=== PATIENT | male | born 1950 | race Caucasian/White ===

== ENCOUNTER 2021-12-21 10:19 | Observation (INO) | payer OTHER, SELFPAY ==
[2021-12-21] VITALS (9 sets, daily range): BP systolic 131–148; BP diastolic 67–83; PULSE 86–96; RESP 14–22; TEMP 36.7–38.1; O2SAT 94–97; BMI 23.7; BMI 24.1
--- NOTE | 2021-12-21 10:52 | ED_ITS ---
ED Disposition Clinical Impression: Acute kidney injury, COVID-19 virus infection Disposition: Admitted as Observation Condition on Discharge: Fair - Critical Care Critical Care Time: No Attestation: On 12/21/21, the high probability of a clinically significant, sudden or life threatening deterioration of the following system(s) required my full and direct attention, intervention and personal management. The time I documented below is in addition to time spent performing reported procedures but includes the following listed in this critical care notation. Medical Decision Making - Feliberto Inquiry Pt receiving controlled substance: No Vital Signs: 12/21/21 10:30 12/21/21 10:34 12/21/21 11:49 Temperature 98.1 F Temperature Source Oral Pulse Rate 90 88 Pulse Rate [Left Radial] 96 H Respiratory Rate 14 18 Blood Pressure 131/69 141/74 H Blood Pressure [Right Arm] 142/67 H Blood Pressure Mean 92 Blood Pressure Mean [Right Arm] 92 Blood Pressure Source [Right Arm] Automatic Cuff Blood Pressure Position [Right Arm] Sitting 02 Sat by Pulse Oximetry 97 97 96 Oxygen Delivery Method Room Air 12/21/21 12:00 12/21/21 12:30 Temperature Temperature Source Pulse Rate 91 H 86 Pulse Rate [Left Radial] Respiratory Rate Blood Pressure 141/82 H 139/73 Blood Pressure [Right Arm] Blood Pressure Mean Blood Pressure Mean [Right Arm] Blood Pressure Source [Right Arm] Blood Pressure Position [Right Arm] 02 Sat by Pulse Oximetry 96 96 Oxygen Delivery Method - Lab Data Lab Results 12/21/21 10:52: SARS-CoV-2 (PCR) Detected A, Influenza A Untype (PCR) Not detected, Influenza Type B (PCR) Not detected 12/21/21 11:00: WBC 6.7, RBC 5.01, Hgb 14.9, Hct 45.8, MCV 91.5, MCH 29.7, MCHC 32.5, RDW 13.7, Plt Count 241, MPV 9.5, Neut % (Auto) 66.4, Lymph % (Auto) 22.9, [place] % (Auto) 8.4, Eos % (Auto) 0.7, Baso % (Auto) 1.5, Neut # (Auto) 4.4, Lymph # (Auto) 1.5, [place] # (Auto) 0.6, Eos # (Auto) 0.1, Baso # (Auto) 0.1, ESR 29 H 12/21/21 11:00: Sodium 136, Potassium 3.9, Chloride 105, Carbon Dioxide 21 L, Anion Gap 13.9, BUN 37 H, Creatinine 2.20 H, Estimated Creat Clear 35, Estimated GFR 30 L, Est GFR ( Amer) 36 L, Glucose 104 H, Calcium 9.2, Total Bilirubin 0.6, AST 26, ALT 29, Alkaline Phosphatase 74, C-Reactive Protein 73.9 H, Total Protein 7.8, Albumin 4.1, Globulin 3.7 H, Albumin/Globulin Ratio 1.1, Procalcitonin 0.240 12/21/21 11:00: Lactate 0.7 Result diagrams: 12/21/21 11:00 12/21/21 11:00 Orders (Tests/Meds): ED MEDICATIONS Discontinued Medications Generic Name Dose Route Start Last Admin Trade Name Freq PRN Reason Stop Dose Admin Sodium Chloride 1,000 ml 12/21/21 11:39 12/21/21 12:02 Sodium Chloride 0.9% 1000ml Bag IV 12/21/21 11:40 1,000 ml BOLUS ONE Administration ORDERS Category Date Time Status Urinalysis and Microscopic Stat Lab 12/21/21 10:51 Ordered Blood Culture Stat Micro 12/21/21 11:00 Received - Radiology Data #1 Image(s): Chest Image Reviewed: Yes I reviewed the patient's radiology image, Yes I have reviewed radiologist's interpretation PROCEDURE INFORMATION: Exam: XR Chest Exam date and time: 12/21/2021 10:51 AM Age: 71 years old Clinical indication: Fever; Additional info: Fever// pending covid test TECHNIQUE: Imaging protocol: XR of the chest. Views: 2 views. COMPARISON: No relevant prior studies available. FINDINGS: Lungs: There are chronic interstitial changes in both lungs. There is subtle increased opacity in the right upper lobe. No consolidation. Pleural spaces: Unremarkable. No pleural effusion. No pneumothorax. Heart/Mediastinum: Unremarkable. No cardiomegaly. Bones/joints: Unremarkable. IMPRESSION: Subtle increased opacity right upper lobe. Faint ground-glass infiltrate or airspace opacity could have this appearance. Clinical correlation for right upper lobe pneumonia is recommended. - Physician Consults Physician Consulted: Nik Time: 12:05 Reason -: Admission, Pt condition Comment/Response: Agrees to admit the patient to the hospital. We discussed the patient's clinical information, including history, exam, laboratory and radiology results and ED course. Per hospital procedure, I will write temporary bridge inpatient orders on the patient. Specific orders requested by the admitting physician: IV fluids, recheck chemistry profile in the morning. Vitamins and zinc for COVID. No steroids, or antivirals. Medical Decision Narrative: Chest x-ray findings likely minimal Covid viral pneumonia. General Adult HPI - General Chief complaint: Upper Respiratory Infection Stated complaint: fever, weakness, chills, dry mouth Time Seen by Provider: 12/21/21 10:45 Mode of Arrival: Ambulatory Limitations: No Limitations Description of Symptoms (Recalled from ER Triage Doc. by RN): c/o fever, nausea, non productive cough, chills and aches for about 8 days - History of Present Illness HPI narrative: States he has been sick for 8 days. He has had fevers, generalized weakness, poor appetite, dry mouth. Denies any current pain. Says that he had a little bit of a sore throat a couple of days ago but it resolved. No rhinorrhea or cough. No abdominal pain, vomiting, or diarrhea. No known exposure to any illnesses including COVID-19. He has had 1 dose of Moderna vaccine in March, never followed up for the second dose. - Related Data Home Medications Medication Instructions Recorded Confirmed Amlodipine Besylate [Amlodipine 10 mg PO DAILY 12/21/21 12/21/21 10mg Tab] Simvastatin 20 mg PO DAILY 12/21/21 12/21/21 Allergies Allergy/AdvReac Type Severity Reaction Status Date / Time No Known Allergies Allergy Verified 12/21/21 10:38 [facility] History - Hepatitis A Screen Drug use history?: No High risk sexual behaviors?: No History of sexually transmitted infection?: No Currently employed?: No Childcare worker?: No Do you have indoor plumbing?: Yes Do you have electricity?: Yes Attestation statement:: This patient has been screened for Hepatitis A risk factors. I have reviewed the patient's past medical history: Yes ROS Obtained: Yes All systems reviewed & no additional complaints - Constitutional Constitutional: Reports chills, Reports fever(s), Reports poor appetite, Reports malaise, Reports weakness - ENT Ears, Nose, Mouth, and Throat: Denies nasal discharge, Reports sore throat - Cardiovascular Cardiovascular: Denies chest pain - Respiratory Respiratory: Denies shortness of breath, Denies cough - Gastrointestinal Gastrointestingal: Denies: abdominal pain, diarrhea, vomiting - Genitourinary Male Genitourinary: Denies difficulty urinating, Denies flank pain Physical Exam - General General appearance: alert, in no apparent distress - Head Head exam: atraumatic, normocephalic - Eye Eye exam: Present: normal appearance, EOMI - ENT ENT exam: Present: normal oropharynx, mucous membranes moist, TM's normal bilaterally - Neck Neck exam: Present: normal inspection, trachea midline. Absent: meningismus, lymphadenopathy - Chest Chest inspection: Present: normal inspection, symmetric chest wall rise - Respiratory Respiratory exam: Present: normal lung sounds bilaterally. Absent: respiratory distress - Cardiovascular Cardiovascular exam: Present: regular rate, normal rhythm, normal heart sounds - Abdominal Exam Abdominal exam: Present: soft. Absent: distention, tenderness, guarding, rebound - Extremities Exam Extremities exam: Present: normal inspection - Neurological Exam Neurological exam: Present: alert, oriented X3, CN II-XII intact. Absent: motor sensory deficit - Psychiatric Psychiatric exam: Present: normal affect, normal mood - Skin Skin exam: Present: warm, dry. Absent: rash
[2021-12-21 11:16] LABS: Basophils # 0.1 K/mm3 (0-0.2); Basophils % 1.5 % (0.1-2.0); Eosinophils # 0.1 K/mm3 (0.0-0.4); Eosinophils % 0.7 % (0.1-12.0); Hematocrit 45.8 % (42.0-52.0); Hemoglobin 14.9 g/dL (14.1-18.0); Lymphocytes # 1.5 K/mm3 (0.7-4.5); Lymphocytes % 22.9 % (10-50); Mean Corpuscular HGB Conc 32.5 g/dL (31.8-35.4); Mean Corpuscular Hemoglobin 29.7 pg (27.0-31.2); Mean Corpuscular Volume 91.5 fl (80-94); Mean Platelet Volume 9.5 fl (7.4-10.4); Monocytes # 0.6 K/mm3 (0.1-1.0); Monocytes % 8.4 % (1.7-9.3); Neutrophils # 4.4 K/mm3 (1.8-7.8); Neutrophils % 66.4 % (37.0-80.0); Platelet Count 241 K/mm3 (142-424); Red Blood Count 5.01 M/mm3 (4.60-6.20); Red Cell Distribution Width 13.7 % (11.5-17.5); White Blood Count 6.7 K/mm3 (4.8-10.8)
[2021-12-21 11:19] LABS: Influenza A, PCR Not Detected (NotDetected); Influenza B, PCR Not Detected (NotDetected)
[2021-12-21 11:23] LABS: Alanine Aminotransferase 29 U/L (12-78); Albumin Level 4.1 g/dl (3.5-5.0); Albumin/Globulin Ratio 1.1 (1.1-1.8); Alkaline Phosphatase 74 U/L (38-126); Anion Gap 13.9 mEq/L (5-15); Aspartate Amino Transferase 26 U/L (17-59); Bilirubin,Total 0.6 mg/dl (0.2-1.3); Blood Urea Nitrogen 37 mg/dl (9-20); Calcium 9.2 mg/dl (8.4-10.2); Carbon Dioxide 21 mmol/L (22.0-30.0); Chloride 105 mmol/L (98-107); Creatinine Clearance Estimated 35 mL/min (50-200); Estimated Glomerular Filt Rate 30 ml/min (>60); GFR (African American) 36 ML/MIN (>60); Globulin 3.7 g/dL (1.3-3.2); Glucose 104 mg/dl (74-100); Potassium 3.9 mmoL/L (3.5-5.1); Sodium 136 mmol/L (136-145); Total Protein,Serum 7.8 g/dl (6.3-8.2)
[2021-12-21 11:24] LABS: Lactic Acid 0.7 mmol/L (0.7-2.1)
[2021-12-21 11:29] LABS: C-Reactive Protein 73.9 mg/L (0-4)
[2021-12-21 11:40] LABS: Erythrocyte Sedimentation Rate 29 mm/hr (0-20)
--- NOTE | 2021-12-21 11:44 | PC.NURSE ---
patient back from radiology and into bathroom at this time.
[2021-12-21 11:47] LABS: Coronavirus 19, PCR Detected (NotDetected)
--- NOTE | 2021-12-21 11:47 | PC.NURSE ---
pt back in bed after using bathroom. Ice water was given to the patient. Pt hooked back up to vital signs at this time.
--- NOTE | 2021-12-21 11:58 | PC.NURSE ---
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
[2021-12-21] MEDS: SODIUM CHLORIDE 0.9% 1000ML BAG 1000 ML IV (12:02)
--- NOTE | 2021-12-21 12:02 | PC.NURSE ---
Dr Zaragoza returned call.
--- NOTE | 2021-12-21 12:40 | PC.NURSE ---
Updated pt family about pt status and plan of care
[2021-12-21 13:23] LABS: Microscopic, Urine URINE MICROSCOPIC (MICROSCOPIC)
[2021-12-21 13:30] LABS: Appearance,Urine CLOUDY (Clear); Bilirubin,Urine Negative (Negative); Blood, Urine 3+ (Negative); Color,Urine YELLOW (Yellow); Glucose,Urine (UA) Negative (Negative); Ketones,Urine Negative (Negative); Leukocyte Esterase,Urine 2+ (Negative); Nitrate,Urine Negative (Negative); PH,Urine 6.5 (5.0-8.5); Protein,Urine TRACE (Negative); Urobilinogen,Urine 0.2 EU/dl (0.2)
--- NOTE | 2021-12-21 13:43 | HMH.PHAINT ---
MEDICATION RECONCILIATION COMPLETED ON PATIENT USING EXTERNAL FILL HISTORY FROM PHARMACY. -GUERO REEDER, MICHELLED
[2021-12-21 13:46] LABS: Bacteria,Urine 1+ /lpf; Squamous Epithelial Cell,Urine Occasional #/hpf (0-5)
--- NOTE | 2021-12-21 14:09 | PC.NURSE ---
pt asked to have a soda. Pepsi was given to patient.
--- NOTE | 2021-12-21 14:32 | PC.NURSE ---
report given to floor nurse
--- NOTE | 2021-12-21 14:48 | P.CONPHA_ITS ---
[facility] Pharmacy VTE Monitoring - Patient Demographics Admission date: 12/21/21 Report Date: 12/21/21 Time: 14:48 Allergies/Adverse Reactions: Patient Allergies No Known Allergies Allergy (Verified 12/21/21 10:38) Height: 1.83 m Weight: 79.379 kg Patient Problems: Current Active Problems Acute kidney injury (Acute) COVID-19 virus infection (Acute) - VTE Risk Labs: VTE Related Lab Results Hgb 14.9 g/dL (14.1-18.0) 12/21/21 11:00 Hct 45.8 % (42.0-52.0) 12/21/21 11:00 Plt Count 241 K/mm3 (142-424) 12/21/21 11:00 BUN 37 mg/dl (9-20) H 12/21/21 11:00 Creatinine 2.20 mg/dl (0.66-1.25) H 12/21/21 11:00 Estimated Creat Clear 35 mL/min (50-200) 12/21/21 11:00 - Prophylaxis VTE Prophylaxis Ordered?: Yes Types of VTE Prophylaxis: TEDS Knee High Location of Applied Device: Bilateral Lower Extremeties
[2021-12-21] MEDS: 0.9 % SODIUM CHLORIDE 1,000 ML 100 ML IV (15:09)
[2021-12-21] MEDS: FAMOTIDINE 20MG TABLET 20 MG PO (15:40)
[2021-12-21] MEDS: ERGOCALCIFEROL 50,000 UNITS (1.25MG) CAPSULE 50000 UNIT PO (15:40)
[2021-12-21] MEDS: ASCORBIC ACID 500MG TAB 500 MG PO ×3 (15:40→22:33)
[2021-12-21] MEDS: PRAVASTATIN 40MG TAB 40 MG PO (22:33)
[2021-12-21] MEDS: ACETAMINOPHEN 325MG TAB 650 MG PO (22:33)
[2021-12-22] VITALS: BP 135/66; PULSE 78; RESP 18; TEMP 37.2; O2SAT 90
[2021-12-22 04:00] VITALS: BP 134/74; PULSE 75; RESP 16; TEMP 36.9; O2SAT 94
[2021-12-22] MEDS: 0.9 % SODIUM CHLORIDE 1,000 ML 100 ML IV (04:32)
--- NOTE | 2021-12-22 05:17 | PC.NURSE ---
Patient had a slight increase in temperature, acetaminophen administered appropriately. During activity patient will de-stat into the 70s. RT was called to bedside. Vapotherm increased, patient recovered. Vapotherm now at 25/100. No other events thru the nite.
--- NOTE | 2021-12-22 05:22 | PC.NURSE ---
No events thru the nite, patient rested well. Ambulated to restroom and tolerated well.
[2021-12-22 07:00] LABS: Chloride 106 mmol/L (98-107); Potassium 3.7 mmoL/L (3.5-5.1); Sodium 139 mmol/L (136-145)
[2021-12-22 07:03] LABS: Anion Gap 16.7 mEq/L (5-15); Blood Urea Nitrogen 33 mg/dl (9-20); Carbon Dioxide 20 mmol/L (22.0-30.0); Creatinine Clearance Estimated 39 mL/min (50-200); Estimated Glomerular Filt Rate 33 ml/min (>60); GFR (African American) 40 ML/MIN (>60); Glucose 100 mg/dl (74-100)
[2021-12-22 08:00] VITALS: BP 131/73; PULSE 85; RESP 16; TEMP 37.3; O2SAT 96
--- NOTE | 2021-12-22 08:31 | US_ITS ---
FINAL REPORT TECHNIQUE: Ultrasound images of the kidneys and bladder were obtained. CLINICAL HISTORY: HBP, IDALIA FINDINGS: The right kidney measures 13.7 cm in length. It is normal in echogenicity. There is severe hydronephrosis. The left kidney measures 12.3 cm in length. It is normal in echogenicity. There is severe hydronephrosis. The urinary bladder is unremarkable. Multiple gallstones in the gallbladder are noted as an incidental finding. The spleen is within normal limits. IMPRESSION: Severe hydronephrosis bilaterally. Reviewed, Interpreted and Dictated by Will Pena III, MD Transcribed by Shari Yeung Authenticated by Will Pena III, MD on 12/22/2021 10:10:38 AM [facility]
--- NOTE | 2021-12-22 09:07 | P.HP_ITS ---
*Admission Date: 12/21/21 <NavidDanielle 12/22/21 09:13> *Chief complaint: Weakness and fever <Danielle Shoemaker 12/22/21 09:13> *History of present illness: Mr. Spring is a 71-year-old male patient with a history of hypertension, hyperlipidemia, and tobacco addiction who presented to the emergency room after suffering with persistent fever, body aches, and weakness. He states he has been sick for about 7 to 8 days and has not been eating and drinking as usual. He denies shortness of breath and cough. He states he initially had a sore throat but this has resolved. Thus he presented to the ER. Patient lives at home with his . His has no symptoms and has not been sick. He did receive 1 dose of [place] vaccine. In the emergency room temperature was 98.1. O2 sats were 96% on room air. He received a liter of IV fluids. COVID-19 was positive. Renal function with elevated creatinine and GFR of 30. Chest x-ray shows the following: IMPRESSION: Subtle increased opacity right upper lobe. Faint ground-glass infiltrate or airspace opacity could have this appearance. Clinical correlation for right upper lobe pneumonia is recommended. He was then admitted for further evaluation and treatment. This AM he may feel a little better. He still denies CP, SOB and cough. He continues with some body aches. <Danielle Shoemaker 12/22/21 10:03> [facility] History Medical History: Reports:: Hyperlipidemia, Hypertension Denies:: Cancer, Diabetes Mellitus Type 1, Diabetes Mellitus Type 2, Internal Pacemaker, MRSA <Danielle Shoemaker 12/22/21 09:13> *Have you ever received a pneumonia vaccine?: No <Danielle Shoemaker 12/22/21 09:13> *Have you received a flu vaccine this season?: No <Danielle Shoemaker 12/22/21 09:13> Laterality Cases: Right: Total Hip Replacement (2011) <Danielle Shoemaker 12/22/21 10:03> Other Surgeries: Yes: Colon Resection (for diverticular disease). No: Pacemaker <Danielle Shoemaker 12/22/21 10:03> Amputation: Yes (right 4th toe) <Danielle Shoemaker 12/22/21 10:03> Fractures: No <NavidDanielle 12/22/21 09:13> - *Social History Last grade of school completed: High school graduate <ShoemakerDanielle 12/22/21 09:13> Smoking Status: Current every day smoker <ShoemakerDanielle 12/22/21 10:03> # Packs/Day (cigarettes): 1 <ShoemakerDanielle 12/22/21 10:03> Alcohol Intake: never <ShoemakerDanielle 12/22/21 09:13> *Occupational Status:: retired (from the [employer] service) <ShoemakerDanielle 12/22/21 10:03> Housing: house <Shoemaker,Danielle 12/22/21 09:13> Household Members: spouse <Shoemaker,Danielle 12/22/21 09:13> *Travel in the last 8 weeks: None <NavidDanielle 12/22/21 09:13> Comment: agnieszka willingham <Danielle Shoemaker 12/22/21 10:03> Family Hx:: Cancer, Diabetes, Hypertension, Stroke <Danielle Shoemaker 12/22/21 10:03> Review of Systems - Constitutional Reports fatigue, Reports fever(s), Reports headache(s), Reports lack of energy <Danielle Shoemaker 12/22/21 10:03> - Eyes Denies change in vision <Danielle Shoemaker 12/22/21 10:03> - ENT Reports sore throat, Denies ear pain <Danielle Shoemaker 12/22/21 10:03> - *Cardiovascular Denies chest pain, Denies shortness of breath, Denies leg swelling <Danielle Shoemaker 12/22/21 10:03> - *Respiratory Denies chest congestion, Denies cough, Denies shortness of breath <Danielle Shoemaker 12/22/21 10:03> - *Gastrointestinal Denies abdominal pain, Denies constipation, Denies heartburn, Denies nausea, Denies vomiting <Danielle Shoemaker 12/22/21 10:03> Comments: poor appetite <Danielle Shoemaker 12/22/21 10:03> - *Genitourinary Denies difficulty urinating <Danielle Shoemaker 12/22/21 10:03> - *Musculoskeletal Reports body aches, Denies abnormal walking <Danielle Shoemaker 12/22/21 10:03> - *Neurologic Reports headache(s), Reports weakness, Denies unsteadiness, Denies dizziness <Danielle Shoemaker - 12/22/21 10:03> Meds Home Medications Medication Instructions Recorded Confirmed Type Amlodipine Besylate [Amlodipine 10 mg PO DAILY 12/21/21 12/21/21 History 10mg Tab] Simvastatin 20 mg PO HS 12/21/21 12/21/21 History <SybilMargarito Parth - 12/22/21 17:30> Allergies Allergy/AdvReac Type Severity Reaction Status Date / Time No Known Allergies Allergy Verified 12/21/21 10:38 <Margarito Devine - 12/22/21 17:30> Exam Vital signs and Labs for Last 24 Hours: Temp Pulse Resp BP Pulse Ox 99.0 F 82 16 145/81 H 95 12/22/21 16:00 12/22/21 16:00 12/22/21 16:00 12/22/21 16:00 12/22/21 16:00 Laboratory Results - last 24 hr 12/22/21 06:30: Sodium 139, Potassium 3.7, Chloride 106, Carbon Dioxide 20 L, Anion Gap 16.7 H, BUN 33 H, Creatinine 2.00 H, Estimated Creat Clear 39, Estimated GFR 33 L, Est GFR ( Amer) 40 L, Glucose 100, Calcium 9.0 <Margarito Devine - 12/22/21 17:30> Temp Pulse Resp BP Pulse Ox 99.1 F 85 16 131/73 96 12/22/21 08:00 12/22/21 08:00 12/22/21 08:00 12/22/21 08:00 12/22/21 08:00 Laboratory Results - last 24 hr 12/21/21 10:52: SARS-CoV-2 (PCR) Detected A, Influenza A Untype (PCR) Not detected, Influenza Type B (PCR) Not detected 12/21/21 11:00: WBC 6.7, RBC 5.01, Hgb 14.9, Hct 45.8, MCV 91.5, MCH 29.7, MCHC 32.5, RDW 13.7, Plt Count 241, MPV 9.5, Neut % (Auto) 66.4, Lymph % (Auto) 22.9, [place] % (Auto) 8.4, Eos % (Auto) 0.7, Baso % (Auto) 1.5, Neut # (Auto) 4.4, Lymph # (Auto) 1.5, [place] # (Auto) 0.6, Eos # (Auto) 0.1, Baso # (Auto) 0.1, ESR 29 H 12/21/21 11:00: Sodium 136, Potassium 3.9, Chloride 105, Carbon Dioxide 21 L, Anion Gap 13.9, BUN 37 H, Creatinine 2.20 H, Estimated Creat Clear 35, Estimated GFR 30 L, Est GFR ( Amer) 36 L, Glucose 104 H, Calcium 9.2, Total Bilirubin 0.6, AST 26, ALT 29, Alkaline Phosphatase 74, C-Reactive Protein 73.9 H, Total Protein 7.8, Albumin 4.1, Globulin 3.7 H, Albumin/Globulin Ratio 1.1, Procalcitonin 0.240 12/21/21 11:00: Lactate 0.7 12/21/21 13:16: Urine Color Yellow, Urine Appearance Cloudy, Urine pH 6.5, Ur Specific [place] 1.010, Urine Protein Trace, Urine Glucose (UA) Negative, Urine Ketones Negative, Urine Blood 3+, Urine Nitrate Negative, Urine Bilirubin Negative, Urine Urobilinogen 0.2, Ur Leukocyte Esterase 2+ A, Urine RBC 10-20, Urine WBC 5-10, Ur Squamous Epith Cells Occasional, Urine Bacteria 1+ 12/22/21 06:30: Sodium 139, Potassium 3.7, Chloride 106, Carbon Dioxide 20 L, Anion Gap 16.7 H, BUN 33 H, Creatinine 2.00 H, Estimated Creat Clear 39, Estimated GFR 33 L, Est GFR ( Amer) 40 L, Glucose 100, Calcium 9.0 <Danielle Shoemaker - 12/22/21 09:13> I & O for Last 24 hours: Intake & Output 12/20/21 12/21/21 12/22/21 12/23/21 11:59 11:59 11:59 11:59 Intake Total 300 / 300 240 / 240 Balance 300 / 300 240 / 240 Weight 175 lb 178 lb 2.136 oz <Sybil,Margarito Parth - 12/22/21 17:30> Intake & Output 12/19/21 12/20/21 12/21/21 12/22/21 11:59 11:59 11:59 11:59 Intake Total 240 / 240 Balance 240 / 240 Weight 175 lb 178 lb 4 oz <Kathleen Shoemakerhy 12/22/21 09:13> Microbiology Reports for the Last 24 Hours: Microbiology 12/21/21 13:16 Urine,Clean Catch Urine Culture - Preliminary <Margarito Devine - 12/22/21 17:30> Microbiology 12/21/21 13:16 Urine,Clean Catch Urine Culture - Preliminary <ShoemakerDanielle 12/22/21 09:13> - Constitutional no acute distress <Danielle Shoemaker 12/22/21 10:03> Comments: sitting u in the bed and appears comfortable <Danielle Shoemaker 12/22/21 10:03> - *Routine HEENT Exam Head: Present: normocephalic, atraumatic <Danielle Shoemaker 12/22/21 10:03> Eye: Present: PERRL. Absent: conjunctival icterus, scleral injection <Danielle Shoemaker 12/22/21 10:03> ENT: Present: mucous membranes moist, oropharynx clear <Danielle Shoemaker 12/22/21 10:03> - *Routine Neck Exam Present: supple. Absent: carotid bruit, lymphadenopathy, thyromegaly <Danielle Shoemaker 12/22/21 10:03> - *Routine Respiratory Exam Present: CTA bilaterally (A&P) <Danielle Shoemaker 12/22/21 10:03> Comments: some cough during exam <Danielle Shoemaker 12/22/21 10:03> - *Routine Cardiovascular Exam Present: RRR <Danielle Shoemaker 12/22/21 10:03> - *Routine Abdominal Exam Present: soft, normoactive bowel sounds. Absent: tenderness <Danielle Shoemaker 12/22/21 10:03> - *Routine Rectal Exam Rectal:: deferred <Danielle Shoemaker 12/22/21 10:03> - *Routine Genitalia Exam Genitalia:: deferred <Danielle Shoemaker - 12/22/21 10:03> - *Routine Extremities Exam Absent: edema, calf tenderness <Danielle Shoemaker 12/22/21 10:03> - *Routine Neurological Exam Present: alert, oriented X3 <Danielle Shoemaker 12/22/21 10:03> Assessment and Plan (1) Acute kidney injury Status: Acute Category: Medical Code(s): N17.9 - Acute kidney failure, unspecified (2) COVID-19 virus infection Status: Acute Category: Medical Code(s): U07.1 - COVID-19 (3) HTN (hypertension) Status: Chronic Category: Medical Code(s): I10 - Essential (primary) hypertension (4) Tobacco abuse disorder Status: Chronic Category: Medical Code(s): Z72.0 - Tobacco use <Margarito Devine 12/22/21 17:30> (1) HTN (hypertension) Status: Chronic Category: Medical Code(s): I10 - Essential (primary) hypertension (2) Tobacco abuse disorder Status: Chronic Category: Medical Code(s): Z72.0 - Tobacco use (3) Acute kidney injury Status: Acute Category: Medical Code(s): N17.9 - Acute kidney failure, unspecified (4) COVID-19 virus infection Status: Acute Category: Medical Code(s): U07.1 - COVID-19 <Danielle Shoemaker 12/22/21 09:44> - Assessment and plan all Dx Assessment and Plan for all problems:: Patient seen and examined Concur with above. IVF increased to 125cc/h. Check renal US to r/o intrinsic kidney disease. <Sybil,Margarito Parth - 12/22/21 17:30> Kidney US; continue with IVF at 125/h for renal insufficiency due to probable decrease in oral fluid intake with the 7-8 days of COVID illness; has been started on Vitamins and Pepcid as per COVID protocol. O2 sats remain good on room air. Will continue to monitor <Danielle Shoemaker 12/22/21 10:03>
[2021-12-22 10:05] VITALS: BMI 24.1
[2021-12-22] MEDS: ZINC SULFATE 220MG CAPSULE 220 MG PO (10:10)
[2021-12-22] MEDS: AMLODIPINE 10MG TABLET 10 MG PO (10:10)
[2021-12-22] MEDS: ASCORBIC ACID 500MG TAB 500 MG PO ×4 (10:10→21:56)
[2021-12-22] MEDS: FAMOTIDINE 20MG TABLET 20 MG PO (10:10)
[2021-12-22 12:22] VITALS: BP 137/70; PULSE 94; RESP 18; TEMP 36.6; O2SAT 93
[2021-12-22 16:00] VITALS: BP 145/81; PULSE 82; RESP 16; TEMP 37.2; O2SAT 95
[2021-12-22] MEDS: 0.9 % SODIUM CHLORIDE 1,000 ML 125 ML IV (16:39)
[2021-12-22 19:47] VITALS: BP 153/76; PULSE 89; RESP 20; TEMP 37.1; O2SAT 93
[2021-12-22] MEDS: PRAVASTATIN 40MG TAB 40 MG PO (21:56)
[2021-12-23] VITALS: BP 164/71; PULSE 90; RESP 20; TEMP 37.8; O2SAT 93
[2021-12-23] MEDS: ACETAMINOPHEN 325MG TAB 650 MG PO (00:07)
[2021-12-23 04:00] VITALS: BP 162/75; PULSE 82; RESP 18; TEMP 36.7; O2SAT 94
[2021-12-23 05:00] VITALS: BMI 24.1
[2021-12-23 06:30] LABS: Chloride 113 mmol/L (98-107); Potassium 3.6 mmoL/L (3.5-5.1); Sodium 139 mmol/L (136-145)
[2021-12-23 06:33] LABS: Anion Gap 13.6 mEq/L (5-15); Blood Urea Nitrogen 24 mg/dl (9-20); Carbon Dioxide 16 mmol/L (22.0-30.0); Creatinine Clearance Estimated 49 mL/min (50-200); Estimated Glomerular Filt Rate 43 ml/min (>60); GFR (African American) 52 ML/MIN (>60)
[2021-12-23 06:34] LABS: Calcium 8.6 mg/dl (8.4-10.2); Glucose 92 mg/dl (74-100)
[2021-12-23 08:00] VITALS: BP 130/76; PULSE 80; RESP 18; TEMP 36.8; O2SAT 94
[2021-12-23] MEDS: ZINC SULFATE 220MG CAPSULE 220 MG PO (09:26)
[2021-12-23] MEDS: ASCORBIC ACID 500MG TAB 500 MG PO ×2 (09:26→12:57)
[2021-12-23] MEDS: AMLODIPINE 10MG TABLET 10 MG PO (09:26)
[2021-12-23] MEDS: FAMOTIDINE 20MG TABLET 20 MG PO (09:26)
--- NOTE | 2021-12-23 09:45 | HMH.ACPN2 ---
<Danielle Shoemaker - Last Filed: 12/23/21 09:45> Internal Medicine - PN: Subj *Date: 12/23/21 *Time: 09:45 Interval history: Patient is hungry and would like to know where breakfast is. He was made n.p.o. for urology visit this a.m. He denies chest pain and shortness of breath. He does have an occasional cough. He would really like to go home. Slept at intervals. 12/22/2021 renal ultrasounds with results as follows: IMPRESSION: Severe hydronephrosis bilaterally. Exam Vital signs and Labs for Last 24 Hours: Temp Pulse Resp BP Pulse Ox 98.2 F 80 18 130/76 94 L 12/23/21 08:00 12/23/21 08:00 12/23/21 08:00 12/23/21 08:00 12/23/21 08:00 Laboratory Results - last 24 hr 12/23/21 05:27: Sodium 139, Potassium 3.6, Chloride 113 H, Carbon Dioxide 16 L, Anion Gap 13.6, BUN 24 H D, Creatinine 1.60 H, Estimated Creat Clear 49, Estimated GFR 43 L, Est GFR ( Amer) 52 L D, Glucose 92, Calcium 8.6 I & O for Last 24 hours: Intake & Output 12/20/21 12/21/21 12/22/21 12/23/21 11:59 11:59 11:59 11:59 Intake Total 300 / 300 300 / 300 Balance 300 / 300 300 / 300 Weight 175 lb 178 lb 2.136 oz 178 lb 8 oz Microbiology Reports for the Last 24 Hours: Microbiology 12/21/21 13:16 Urine,Clean Catch Urine Culture - Preliminary - Constitutional no acute distress - *Routine Respiratory Exam Present: rhonchi (Bilateral scattered) - *Routine Cardiovascular Exam Present: RRR - *Routine Abdominal Exam Present: soft, normoactive bowel sounds. Absent: tenderness - *Routine Extremities Exam Absent: edema - *Routine Neurological Exam Present: alert, oriented X3 Assessment and Plan (1) Acute kidney injury Status: Acute Category: Medical Code(s): N17.9 - Acute kidney failure, unspecified (2) COVID-19 virus infection Status: Acute Category: Medical Code(s): U07.1 - COVID-19 (3) HTN (hypertension) Status: Chronic Category: Medical Code(s): I10 - Essential (primary) hypertension (4) Tobacco abuse disorder Status: Chronic Category: Medical Code(s): Z72.0 - Tobacco use (5) Hydronephrosis of left kidney Status: Acute Category: Medical Code(s): N13.30 - Unspecified hydronephrosis (6) Hydronephrosis of right kidney Status: Acute Category: Medical Code(s): N13.30 - Unspecified hydronephrosis - Assessment and plan all Dx Assessment and Plan for all problems:: Discussed smoking cessation. Patient is not ready to stop. Dr. Silva to see patient today due to abnormal renal ultrasound. <Margarito Devine - Last Filed: 12/23/21 17:39> Internal Medicine - PN: Subj *Date: 12/23/21 *Time: 17:36 Exam Vital signs and Labs for Last 24 Hours: Temp Pulse Resp BP Pulse Ox 97.6 F 88 16 145/83 H 95 12/23/21 12:00 12/23/21 12:00 12/23/21 12:00 12/23/21 12:00 12/23/21 12:00 Laboratory Results - last 24 hr 12/23/21 05:27: Sodium 139, Potassium 3.6, Chloride 113 H, Carbon Dioxide 16 L, Anion Gap 13.6, BUN 24 H D, Creatinine 1.60 H, Estimated Creat Clear 49, Estimated GFR 43 L, Est GFR ( Amer) 52 L D, Glucose 92, Calcium 8.6 I & O for Last 24 hours: Intake & Output 12/21/21 12/22/21 12/23/21 12/24/21 11:59 11:59 11:59 11:59 Intake Total 300 / 300 300 / 300 Balance 300 / 300 300 / 300 Weight 175 lb 178 lb 2.136 oz 178 lb 8 oz Microbiology Reports for the Last 24 Hours: Microbiology 12/21/21 11:00 Blood Blood Culture - Preliminary NO GROWTH AFTER 48 HOURS 12/21/21 11:00 Blood Blood Culture - Preliminary NO GROWTH AFTER 48 HOURS 12/21/21 13:16 Urine,Clean Catch Urine Culture - Preliminary Assessment and Plan (1) Acute kidney injury Status: Acute Category: Medical Code(s): N17.9 - Acute kidney failure, unspecified (2) COVID-19 virus infection Status: Acute Category: Medical Code(s): U07.1 - COVID-19 (3) HTN (hypertension) Status: Chronic Category: Medical Code(s): I10 - Essential (primary) hypertension (4) Tobacco abuse disorder Status: Chronic Category: Medical Code(s): Z72.0 - Tobacco use (5) Hydronephrosis of left kidney Status: Acute Category: Medical Code(s): N13.30 - Unspecified hydronephrosis (6) Hydronephrosis of right kidney Status: Acute Category: Medical Code(s): N13.30 - Unspecified hydronephrosis - Assessment and plan all Dx Assessment and Plan for all problems:: Patient seen and examined. He states he is feeling better and wants to go home. Appetite still not good but taking liquieds well. Renal function continues to improve with hydration however his renal US showed bilateral hydronephrosis. He denies urinary hesitancy or frequency. Will consult with urology today. Possibly discharge later today after evaluated by Dr. Silva.
--- NOTE | 2021-12-23 10:14 | CT_ITS ---
FINAL REPORT CLINICAL HISTORY: hydronephrosis FINDINGS: Technique: Axial images through the abdomen and pelvis were performed by computed tomography. This study was performed with techniques to keep radiation doses as low as reasonably achievable (ALARA). Individualized dose reduction techniques using automated exposure control or adjustment of mA and/or kV according to the patient's size were employed. Abdomen: There is mild scarring in the right lung base. There are groundglass opacities in the left lung base, may represent pneumonia or edema. The liver is normal in size and attenuation. Gallstones are noted. The spleen is unremarkable. The pancreas is normal. The adrenals are normal. The aorta is normal in caliber. There is severe bilateral hydronephrosis and hydroureter. There is bilateral retroperitoneal stranding/edema. Pelvis: The appendix is not identified. The urinary bladder is markedly distended to above the umbilicus. There are postoperative changes of the ascending colon. There is descending and sigmoid diverticulosis. Bilateral inguinal hernias containing fat are identified. Postoperative changes are seen of the right hip. There is no free fluid or adenopathy. IMPRESSION: Groundglass opacities, may represent pneumonia or edema. Cholelithiasis. Bilateral hydronephrosis and hydroureter which may be due to reflux. Reviewed, Interpreted and Dictated by Will Pena III, MD Transcribed by Danielle Mcmahan Authenticated by Will Pena III, MD on 12/23/2021 01:50:14 PM [facility]
--- NOTE | 2021-12-23 10:18 | HMH.CONS ---
*Admission Date: 12/21/21 *Reason for consult:: Bilateral hydronephrosis *History of present illness: Patient is a 71-year-old white male referred for bilateral hydronephrosis. He was admitted from the emergency room 2 days ago with Covid and possible pneumonia. Patient's creatinine was noted to be elevated to 2.2. His white count was and renal ultrasound was performed showing bilateral hydronephrosis. The bladder was unremarkable gallstones were noted. Patient was interviewed in the states of variable stream but denies any significant urinary frequency, urgency. He states he gets up at night 1-2 times. His creatinine has improved to 1.6 as of today.` No other imaging is noted in the database. Patient denies a history of kidney stones or urologic intervention. [facility] History Medical History: Reports:: Hyperlipidemia, Hypertension Denies:: Cancer, Diabetes Mellitus Type 1, Diabetes Mellitus Type 2, Internal Pacemaker, MRSA *Have you ever received a pneumonia vaccine?: No *Have you received a flu vaccine this season?: No Laterality Cases: Right: Total Hip Replacement (2011) Other Surgeries: Yes: Colon Resection (for diverticular disease). 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4 mg PO HS #90 cap 12/23/21 Rx capsule] Allergies Allergy/AdvReac Type Severity Reaction Status Date / Time No Known Allergies Allergy Verified 12/21/21 10:38 Exam Vital signs and Labs for Last 24 Hours: Temp Pulse Resp BP Pulse Ox 98.2 F 80 18 130/76 94 L 12/23/21 08:00 12/23/21 08:00 12/23/21 08:00 12/23/21 08:00 12/23/21 08:00 Laboratory Results - last 24 hr 12/23/21 05:27: Sodium 139, Potassium 3.6, Chloride 113 H, Carbon Dioxide 16 L, Anion Gap 13.6, BUN 24 H D, Creatinine 1.60 H, Estimated Creat Clear 49, Estimated GFR 43 L, Est GFR ( Amer) 52 L D, Glucose 92, Calcium 8.6 I & O for Last 24 hours: Intake & Output 12/20/21 12/21/21 12/22/21 12/23/21 23:59 23:59 23:59 23:59 Intake Total 240 / 240 360 / 360 Balance 240 / 240 360 / 360 Weight 80.853 kg 80.8 kg 80.966 kg Microbiology Reports for the Last 24 Hours: Microbiology 12/21/21 13:16 Urine,Clean Catch Urine Culture - Preliminary - Constitutional no acute distress - *Routine HEENT Exam Head: Present: normocephalic Eye: Present: EOMI, PERRL ENT: Present: mucous membranes moist - *Routine Neck Exam Present: supple. Absent: lymphadenopathy - *Routine Respiratory Exam Absent: accessory muscle use - *Routine Cardiovascular Exam Absent: JVD - *Routine Abdominal Exam Present: soft. Absent: tenderness - *Routine Extremities Exam Absent: cyanosis, clubbing, edema - *Routine Skin Exam Present: warm. Absent: rash - *Routine Neurological Exam Present: alert, oriented X3 Internal Medicine - CN: Reslt - Labs CBC & Chem 7: 12/21/21 11:00 12/23/21 05:27 Labs: BMP 12/23/21 05:27 Sodium 139 Potassium 3.6 Chloride 113 H Carbon Dioxide 16 L BUN 24 H D Creatinine 1.60 H Glucose 92 Calcium 8.6 Assessment and Plan (1) Acute kidney injury Status: Acute Category: Medical Code(s): N17.9 - Acute kidney failure, unspecified (2) COVID-19 virus infection Status: Acute Category: Medical Code(s): U07.1 - COVID-19 (3) HTN (hypertension) Status: Chronic Category: Medical Code(s): I10 - Essential (primary) hypertension (4) Tobacco abuse disorder Status: Chronic Category: Medical Code(s): Z72.0 - Tobacco use (5) Hydronephrosis of left kidney Status: Acute Category: Medical Code(s): N13.30 - Unspecified hydronephrosis (6) Hydronephrosis of right kidney Status: Acute Category: Medical Code(s): N13.30 - Unspecified hydronephrosis (7) Hydronephrosis Status: Acute Category: Medical Code(s): N13.30 - Unspecified hydronephrosis Patient with bilateral hydronephrosis. He does not have significant lower urinary tract symptoms. CT scan is recommended for further evaluation. A prescription for tamsulosin was given and he is ready for discharge later today. I will have him return to the office with me next week in follow-up.
--- NOTE | 2021-12-23 10:29 | DIET.NUTRFU ---
RD reviewed meal intake, indicating fair to good intake. Plans to get renal ultrasound today.
[2021-12-23 12:00] VITALS: BP 145/83; PULSE 88; RESP 16; TEMP 36.4; O2SAT 95
--- NOTE | 2021-12-23 13:30 | PC.NURSE ---
Patient notified of discharge order. Patient stated it will take his spouse at least and hour and a half to drive here.
--- NOTE | 2021-12-28 22:53 | P.DS_ITS ---
General - General Admission date:: 12/21/21 <Margarito Devine - 02/04/22 22:03> 12/21/21 <MarlonNellie - 12/28/21 22:58> Discharge date: 12/23/21 <MarlonNellie - 12/28/21 22:58> HPI HPI: Mr. Spring is a 71-year-old male patient with a history of hypertension, hyperlipidemia, and tobacco addiction who presented to the emergency room after suffering with persistent fever, body aches, and weakness. He states he has been sick for about 7 to 8 days and has not been eating and drinking as usual. He denies shortness of breath and cough. He states he initially had a sore t hroat but this has resolved, thus he presented to the ER. Patient lives at home with his . His has no symptoms and has not been sick. He did receive 1 dose of Moderna vaccine. In the emergency room temperature was 98.1. O2 sats were 96% on room air. He received a liter of IV fluids. COVID-19 was positive. Renal function with elevated creatinine and GFR of 30. Chest x-ray shows the following: IMPRESSION: Subtle increased opacity right upper lobe. Faint ground-glass infiltrate or airspace opacity could have this appearance. Clinical correlation for right upper lobe pneumonia is recommended. He was then admitted for further evaluation and treatment. This AM he may feel a little better. He still denies CP, SOB and cough. He continues with some body aches. <MarlonNellie - 12/28/21 22:58> Hospital Course Hospital Course: He was admitted and started on Covid protocol. He was continued on IV fluids for renal insufficiency due to probable decrease in oral fluid intake. His oxygen saturations remained normal on room air. A kidney ultrasound was ordered. His renal ultrasound showed severe hydronephrosis bilaterally. Urology was therefore consulted. He was able to begin taking liquids and his renal function improved with hydration. He was seen by Dr. Silva who recommended a CT of the abdomen and pelvis. He also prescribed tamsulosin. His abdominal pelvic CT showed groundglass opacities representing pneumonia or edema, cholelithiasis, and bilateral hydronephrosis and hydroureter which may be due to reflux. Dr. Silva felt he could follow-up in his office on an outpatient basis. The patient was stable to be discharged. <Nellie Mason - 12/28/21 22:58> Objective Vital signs: Temp Pulse Resp BP Pulse Ox 97.6 F 88 16 145/83 H 95 12/23/21 12:00 12/23/21 12:00 12/23/21 12:00 12/23/21 12:00 12/23/21 12:00 <Margarito Devine - 02/04/22 22:03> Temp Pulse Resp BP Pulse Ox 97.6 F 88 16 145/83 H 95 12/23/21 12:00 12/23/21 12:00 12/23/21 12:00 12/23/21 12:00 12/23/21 12:00 <Nellie Mason 12/28/21 22:58> Narrative: - Constitutional no acute distress - *Routine Respiratory Exam Present: rhonchi (Bilateral scattered) - *Routine Cardiovascular Exam Present: RRR - *Routine Abdominal Exam Present: soft, normoactive bowel sounds. Absent: tenderness - *Routine Extremities Exam Absent: edema - *Routine Neurological Exam Present: alert, oriented X3 <Nellie Mason 12/28/21 22:58> DS: Diagnosis - Discharge Diagnosis (1) Acute kidney injury Status: Acute (2) COVID-19 virus infection Status: Acute (3) HTN (hypertension) Status: Chronic (4) Tobacco abuse disorder Status: Chronic (5) Hydronephrosis of left kidney Status: Acute (6) Hydronephrosis of right kidney Status: Acute <Nellie Mason 12/28/21 22:53> (1) Acute kidney injury Status: Acute (2) COVID-19 virus infection Status: Acute (3) HTN (hypertension) Status: Chronic (4) Tobacco abuse disorder Status: Chronic (5) Hydronephrosis of left kidney Status: Acute (6) Hydronephrosis of right kidney Status: Acute <Margarito Devine - 02/04/22 22:03> Discharge Plan - Patient Discharge Instructions ACTIVITY: Limited activity <Nellie Mason 12/28/21 22:58> DIET: continue same diet <Nellie Mason 12/28/21 22:58> Patient Instructions: Acute Kidney Injury, DI for COVID-19 (Suspected or Confirmed ), Nutrition and Hydration: [employer] in the Fight Against COVID-19 <Margarito Devine - 02/04/22 22:03> Forms: <Margarito Devine - 02/04/22 22:03> - Follow up Plan Follow up with: Margarito Devine MD [Primary Care Provider] - 01/06/22 1:30 pm Darrell Silva MD [Staff Physician] - 12/30/21 10:30 am <Margarito Devine - 02/04/22 22:03> Disposition: Home, Self-Care <Margarito Devine - 02/04/22 22:03> Condition at discharge:: Improved <Nellie Mason - 12/28/21 22:58> Home Medications: Home Medications Medication Instructions Recorded Confirmed Type Amlodipine Besylate [Amlodipine 10 mg PO DAILY 12/21/21 01/16/22 History 10mg Tab] Simvastatin 20 mg PO HS 12/21/21 01/16/22 History Tamsulosin HCl [Flomax 0.4mg 0.4 mg PO HS 01/16/22 01/16/22 History capsule] <Margarito Devine - 02/04/22 22:03> Prescriptions/Medication Reconciliation: Continued Simvastatin 20 mg PO HS Amlodipine Besylate [Amlodipine 10mg Tab] 10 mg PO DAILY No Action Tamsulosin HCl [Flomax 0.4mg capsule] 0.4 mg PO HS <Margarito Devine - 02/04/22 22:03> - Problem Reconciliation Problems Reviewed?: Yes <Margarito Devine - 02/04/22 22:03> Yes <Nellie Mason - 12/28/21 22:58> - Additional Information Additional Information: Concur with above assessment and plan for discharge. <Margarito Devine - 02/04/22 22:03>
== END 2021-12-23 14:45 | disposition home or self-care (01) ==
LOC: ER 12:06 → 2ND 12:12
PROVIDERS: Admitting Provider Family Medicine; Emergency Provider Emergency Medicine; PCP Family Medicine; Visit Provider Family Medicine
DX: U07.1 COVID-19 (principal); N17.9 Acute kidney failure, unspecified; N13.30 Unspecified hydronephrosis; I10 Essential (primary) hypertension; E78.5 Hyperlipidemia, unspecified; F17.210 Nicotine dependence, cigarettes, uncomplicated
CPT/HCPCS: 71046; 74176; 76770; 80048; 80053; 81001; 83605; 84145; 85025; 85651; 86140; 87040; 87086; 87088; 87186; 96365; 99284; C9803; G0378; U0003; U0005

== ENCOUNTER → 2022-01-14 08:37 | Outpatient (CLI) | payer BC, OTHER, SELFPAY | PROVIDERS: PCP Family Medicine; Visit Provider Urology | DX: Z01.812 Encounter for preprocedural laboratory examination (principal); Z11.52 Encounter for screening for COVID-19; N13.30 Unspecified hydronephrosis | CPT/HCPCS: C9803; U0003; U0005 ==

== ENCOUNTER 2022-01-16 10:56 | Day surgery (SDC) | payer BC, SELFPAY ==
[2022-01-14 10:22] VITALS: BMI 22.2
[2022-01-16 11:11] VITALS: BP 141/66; PULSE 79; RESP 18; TEMP 36.6; O2SAT 97
[2022-01-16 12:02] VITALS: BP 127/73; PULSE 82; RESP 16; TEMP 36.4; O2SAT 96
--- NOTE | 2022-01-16 13:23 | HMH.OPNOTE ---
Date of procedure: 01/16/22 Pre-op Diagnosis:: Incomplete bladder emptying Post-op Diagnosis:: Neurogenic bladder Procedure performed:: Cystoscopy Surgeon:: Darrell Silva MD Anesthesia: local Estimated blood loss (mL): 0 Clinical Note:: Patient is a 71-year-old white male recently noted to have bilateral hydroureteronephrosis and a distended bladder. His prostate does not appear to be that large on the CT scan. He is known to have at least a 2 L residual. His creatinine is around 2. Operative findings:: Patient's prostate did not appear to be an obstructing prostate. His bladder was of high capacity and was floppy in nature with a lot of rogation. No cellules or diverticula formation was noted. There was a lot of sediment in the bladder base obscuring the ureteral orifices. There is no evidence of a median lobe. Operative note:: On exam today his bladder is distended. He was taken to the cystoscopy suite after informed consent was obtained. He was prepped and draped in the standard surgical fashion. Local anesthetic was placed into the urethra and clamped for 5 minutes. After 5 minutes the clamp removed and due to the bladder distention a 16 Bangl[place]hi Hunter catheter was passed in the bladder emptied. There was 2.7 L noted in the bladder. Catheter then removed and the flexible cystoscope introduced into the urethra. The prostatic urethra was rather short and did not appear to be obstructing. The bladder was entered and examined in a systematic fashion. The bladder was high capacity and appeared a bit floppy when it was not distended. There was a lot of sediment at the bladder base. Due to the sediment I can never visualize the ureteral orifices. Bladder was filled with 1 L and there was not a significant amount of cellules or diverticula or trabeculation. The scope was retroflexed in the median lobe was not visualized. The scope then pulled back to the prostatic urethra and it was examined again. Again it did not appear to be an obstructing prostate. The scope removed and patient tolerated procedure well. We discussed the findings today and his exam is consistent with a neurogenic bladder and he was taught how to catheterize himself. He was given a 14 Bangladeshi red rubber catheter and we talked how to place the catheter and and he was able to do this and we drained off the 1 L of fluid that was placed during the cystoscopy. The catheter then removed. We discussed the patient needs to do this 3-4 times a day to keep his bladder relatively at low pressure. We discussed if he is not able to do this this will lead to continuing and worsening renal failure. He was given sample packs of the self catheter today and we will order One Touch catheters for him to use in the future. Condition: stable Disposition: same day Specimens:: None Complications:: None
== END 2022-01-16 12:14 | disposition home or self-care (01) ==
LOC: OUTP 10:59
PROVIDERS: PCP Family Medicine; Visit Provider Urology
PROC: (CPT 52000; principal; 2022-01-16 12:00)
DX: N31.9 Neuromuscular dysfunction of bladder, unspecified (principal); N17.9 Acute kidney failure, unspecified; I10 Essential (primary) hypertension; E78.5 Hyperlipidemia, unspecified; Z72.0 Tobacco use; Z79.899 Other long term (current) drug therapy; Z83.3 Family history of diabetes mellitus; Z82.3 Family history of stroke; Z82.49 Family history of ischemic heart disease and other diseases of the circulatory system; Z80.9 Family history of malignant neoplasm, unspecified
CPT/HCPCS: 52000

== ENCOUNTER → 2022-09-28 11:05 | Outpatient (CLI) | payer BC, SELFPAY ==
[2022-09-28 18:42] LABS: Alanine Aminotransferase 14 U/L (12-78); Albumin Level 4.5 g/dl (3.5-5.0); Albumin/Globulin Ratio 1.6 (1.1-1.8); Alkaline Phosphatase 127 U/L (38-126); Anion Gap 16.6 mEq/L (5-15); Aspartate Amino Transferase 17 U/L (17-59); Bilirubin,Total 0.5 mg/dl (0.2-1.3); Blood Urea Nitrogen 17 mg/dl (9-20); Calcium 9.9 mg/dl (8.4-10.2); Carbon Dioxide 29 mmol/L (22.0-30.0); Chloride 101 mmol/L (98-107); Chol/HDL Ratio 4.7 (1-3.5); Cholesterol 164 mg/dl (140-200); Estimated Glomerular Filt Rate 54 ml/min (>60); GFR (African American) 66 ML/MIN (>60); Globulin 2.8 g/dL (1.3-3.2); Glucose 87 mg/dl (74-100); HDL Cholesterol 35 mg/dl (40-60); Potassium 4.6 mmoL/L (3.5-5.1); Sodium 142 mmol/L (136-145); Total Protein,Serum 7.3 g/dl (6.3-8.2); Triglycerides 214 mg/dl (30-150); VLDL Cholesterol 43 mg/dL (0-40)
[2022-09-28 18:53] LABS: Direct LDL Cholesterol 86.54 mg/dL (100-129)
== END ==
PROVIDERS: PCP Family Medicine; Visit Provider Family Medicine
DX: E78.5 Hyperlipidemia, unspecified (principal); I10 Essential (primary) hypertension
CPT/HCPCS: 80053; 80061